=== PATIENT | male | born 1955 | race Caucasian/White ===

== ENCOUNTER 2023-09-15 15:31 | Inpatient (IN) ==
[2023-09-15] MEDS ORDERED: Magnesium Hydroxide LIQ 30 ML UDC PO PRN (18:28)
[2023-09-15] MEDS ORDERED: Albuterol HFA INHALER 8 gm MDI INH PRN (19:03)
[2023-09-16] MEDS: Mometasone 220 MCG MDI INH SCH (07:18)
[2023-09-16] MEDS: Enoxaparin 40 MG/0.4 ML SYR SUBCUT SCH (07:19)
[2023-09-16 07:52] LABS: ABS Basophils 0.1 10^3/uL (0.0-0.1); ABS Eosinophils 0.3 10^3/uL (0.0-0.5); ABS Lymphocytes 1.1 10^3/uL (1.0-4.8); ABS Monocytes 0.8 10^3/uL (0.0-1.1); ABS Neutrophils 8.1 10^3/uL (1.5-7.6); ABS Nucleated RBC 0.01 10^3/ul; Eosinophil % 2.4 %; Hematocrit 22.9 % (38-53); Lymphocyte % 10.9 %; Mean Corpuscular Hemoglobin 31.2 pg (27-33); Mean Corpuscular Hgb Conc 35.1 g/dL (31-36); Mean Corpuscular Volume 88.9 fL (80-97); Mean Platelet Volume 6.8 fL (7.5-11.2); Nucleated Red Blood Cells % 0.1 %/100WBC (0.0-0.8); Platelet Count 440 10^3/uL (150-450); Red Blood Count 2.57 10^6/uL (4.06-5.63); Red Cell Distribution Width 15.6 % (12-17); White Blood Count 10.3 10^3/uL (3.6-10.2)
[2023-09-16 08:32] LABS: Albumin 3.6 g/dL (3.2-5.2); Albumin/Globulin Ratio 1.7 (1-3); Calcium 8.4 mg/dL (8.6-10.3); Creatinine, Serum 1.19 mg/dL (0.67-1.17); Globulin 2.1 g/dL (2-4); Potassium 4.6 mmol/L (3.5-5.0); Total Bilirubin 0.8 mg/dL (0.2-1.0); Total Protein 5.7 g/dL (6.4-8.9); eGFR CKD-EPI 66.1 (>60)
[2023-09-17] MEDS: Bacitracin OINTMENT TUBE TOPICAL SCH (12:32)
[2023-09-18 06:44] LABS: ABS Basophils 0.1 10^3/uL (0.0-0.1); ABS Eosinophils 0.2 10^3/uL (0.0-0.5); ABS Lymphocytes 1.1 10^3/uL (1.0-4.8); ABS Monocytes 0.6 10^3/uL (0.0-1.1); ABS Neutrophils 6.1 10^3/uL (1.5-7.6); ABS Nucleated RBC 0.01 10^3/ul; Eosinophil % 2.2 %; Hematocrit 23.3 % (38-53); Hemoglobin 8.2 g/dL (13.2-16.3); Lymphocyte % 13.6 %; Mean Corpuscular Hemoglobin 30.8 pg (27-33); Mean Corpuscular Hgb Conc 35.1 g/dL (31-36); Mean Corpuscular Volume 87.8 fL (80-97); Mean Platelet Volume 6.8 fL (7.5-11.2); Nucleated Red Blood Cells % 0.1 %/100WBC (0.0-0.8); Platelet Count 460 10^3/uL (150-450); Red Blood Count 2.66 10^6/uL (4.06-5.63); Red Cell Distribution Width 15.6 % (12-17)
[2023-09-18 07:12] LABS: Albumin 3.5 g/dL (3.2-5.2); Albumin/Globulin Ratio 1.6 (1-3); Calcium 8.5 mg/dL (8.6-10.3); Creatinine, Serum 1.17 mg/dL (0.67-1.17); Globulin 2.2 g/dL (2-4); Potassium 4.2 mmol/L (3.5-5.0); Total Bilirubin 0.9 mg/dL (0.2-1.0); Total Protein 5.7 g/dL (6.4-8.9); eGFR CKD-EPI 67.5 (>60)
[2023-09-22] MEDS: Bacitracin OINTMENT TUBE TOPICAL SCH (08:35)
[2023-09-23 06:11] LABS: ABS Basophils 0.1 10^3/uL (0.0-0.1); ABS Eosinophils 0.2 10^3/uL (0.0-0.5); ABS Lymphocytes 0.9 10^3/uL (1.0-4.8); ABS Monocytes 0.5 10^3/uL (0.0-1.1); ABS Neutrophils 3.6 10^3/uL (1.5-7.6); ABS Nucleated RBC 0.01 10^3/ul; Eosinophil % 3.6 %; Hematocrit 26.8 % (38-53); Hemoglobin 9.1 g/dL (13.2-16.3); Lymphocyte % 17.1 %; Mean Corpuscular Hemoglobin 29.5 pg (27-33); Mean Corpuscular Hgb Conc 33.8 g/dL (31-36); Mean Corpuscular Volume 87.3 fL (80-97); Mean Platelet Volume 6.6 fL (7.5-11.2); Nucleated Red Blood Cells % 0.1 %/100WBC (0.0-0.8); Platelet Count 429 10^3/uL (150-450); Red Blood Count 3.07 10^6/uL (4.06-5.63); Red Cell Distribution Width 15.5 % (12-17); White Blood Count 5.3 10^3/uL (3.6-10.2)
[2023-09-23 06:30] LABS: Albumin 3.7 g/dL (3.2-5.2); Albumin/Globulin Ratio 1.8 (1-3); Calcium 8.7 mg/dL (8.6-10.3); Creatinine, Serum 1.19 mg/dL (0.67-1.17); Globulin 2.1 g/dL (2-4); Potassium 4.5 mmol/L (3.5-5.0); Total Bilirubin 0.6 mg/dL (0.2-1.0); Total Protein 5.8 g/dL (6.4-8.9); eGFR CKD-EPI 66.1 (>60)
[2023-09-27] MEDS: Ondansetron ODT 4 mg TAB 4 MG TAB SL PRN (08:37)
[2023-09-29] MEDS: Senna TAB 8.6 mg TAB PO PRN (20:29)
[2023-09-30 06:44] LABS: ABS Basophils 0.1 10^3/uL (0.0-0.1); ABS Eosinophils 0.3 10^3/uL (0.0-0.5); ABS Monocytes 0.5 10^3/uL (0.0-1.1); Eosinophil % 5.5 %; Hematocrit 29.2 % (38-53); Hemoglobin 9.8 g/dL (13.2-16.3); Lymphocyte % 20.1 %; Mean Corpuscular Hemoglobin 28.5 pg (27-33); Mean Corpuscular Hgb Conc 33.6 g/dL (31-36); Mean Corpuscular Volume 84.8 fL (80-97); Mean Platelet Volume 6.9 fL (7.5-11.2); Nucleated Red Blood Cells % 0.1 %/100WBC (0.0-0.8); Platelet Count 272 10^3/uL (150-450); Red Blood Count 3.45 10^6/uL (4.06-5.63); Red Cell Distribution Width 15.4 % (12-17); White Blood Count 4.8 10^3/uL (3.6-10.2)
[2023-09-30 07:03] LABS: Albumin 3.8 g/dL (3.2-5.2); Creatinine, Serum 1.09 mg/dL (0.67-1.17); Globulin 1.9 g/dL (2-4); Total Bilirubin 0.5 mg/dL (0.2-1.0); Total Protein 5.7 g/dL (6.4-8.9); eGFR CKD-EPI 73.5 (>60)
[2023-10-01 06:13] VITALS: BP 127/73
== END 2023-10-01 16:10 | disposition home or self-care (01) | DRG 563 ==
LOC: PMRU 18:02
PROVIDERS: ADMIT Physical Medicine & Rehabilitation; ATTEND Physical Medicine & Rehabilitation

== ENCOUNTER 2024-01-11 09:52 | Inpatient (IN) ==
[2024-01-11] MEDS ORDERED: Magnesium Hydroxide LIQ 30 ML UDC PO PRN (11:58)
[2024-01-11] MEDS ORDERED: Senna TAB 8.6 mg TAB PO PRN (11:58)
[2024-01-11] MEDS: DAPTOMYCIN IVPB SCH (14:40)
[2024-01-11] MEDS: NS 0.9% IVPB SCH (14:40)
[2024-01-11] MEDS: oxyCODONE SR 10 mg TAB PO SCH (21:16)
[2024-01-11] MEDS: Enoxaparin 30 MG/0.3 ML SYR SUBCUT SCH (21:16)
[2024-01-12 05:25] LABS: ABS Basophils 0.1 10^3/uL (0.0-0.1); ABS Eosinophils 0.2 10^3/uL (0.0-0.5); ABS Lymphocytes 1.4 10^3/uL (1.0-4.8); ABS Monocytes 0.7 10^3/uL (0.0-1.1); ABS Neutrophils 4.2 10^3/uL (1.5-7.6); Eosinophil % 3.2 %; Hematocrit 21.8 % (38-53); Hemoglobin 7.4 g/dL (13.2-16.3); Lymphocyte % 21.2 %; Mean Corpuscular Hemoglobin 26.9 pg (27-33); Mean Corpuscular Hgb Conc 33.7 g/dL (31-36); Mean Corpuscular Volume 79.9 fL (80-97); Mean Platelet Volume 6.3 fL (7.5-11.2); Platelet Count 542 10^3/uL (150-450); Red Blood Count 2.74 10^6/uL (4.06-5.63); Red Cell Distribution Width 16.7 % (12-17); White Blood Count 6.5 10^3/uL (3.6-10.2)
[2024-01-12 06:11] LABS: Albumin 2.4 g/dL (3.2-5.2); Albumin/Globulin Ratio 1.2 (1-3); C Reactive Protein 14.05 mg/L (<8.01); Calcium 6.7 mg/dL (8.6-10.3); Creatinine, Serum 1.18 mg/dL (0.67-1.17); Total Bilirubin 0.3 mg/dL (0.2-1.0); Total Protein 4.4 g/dL (6.4-8.9); eGFR CKD-EPI 66.8 (>60)
[2024-01-12 06:37] LABS: Erythrocyte Sed Rate 89 mm/Hr (0-19)
[2024-01-14 09:10] LABS: ABS Basophils 0.1 10^3/uL (0.0-0.1); ABS Eosinophils 0.5 10^3/uL (0.0-0.5); ABS Lymphocytes 1.1 10^3/uL (1.0-4.8); ABS Monocytes 0.7 10^3/uL (0.0-1.1); ABS Neutrophils 5.7 10^3/uL (1.5-7.6); Eosinophil % 5.9 %; Hematocrit 24.8 % (38-53); Hemoglobin 8.4 g/dL (13.2-16.3); Lymphocyte % 13.3 %; Mean Corpuscular Hemoglobin 27.1 pg (27-33); Mean Corpuscular Hgb Conc 33.7 g/dL (31-36); Mean Corpuscular Volume 80.5 fL (80-97); Mean Platelet Volume 6.4 fL (7.5-11.2); Platelet Count 507 10^3/uL (150-450); Red Blood Count 3.08 10^6/uL (4.06-5.63); Red Cell Distribution Width 17.2 % (12-17); White Blood Count 7.9 10^3/uL (3.6-10.2)
[2024-01-15 11:44] LABS: ABS Basophils 0.1 10^3/uL (0.0-0.1); ABS Eosinophils 0.4 10^3/uL (0.0-0.5); ABS Monocytes 1.2 10^3/uL (0.0-1.1); ABS Neutrophils 7.8 10^3/uL (1.5-7.6); Eosinophil % 3.6 %; Hematocrit 25.4 % (38-53); Hemoglobin 8.4 g/dL (13.2-16.3); Lymphocyte % 9.1 %; Mean Corpuscular Hemoglobin 26.6 pg (27-33); Mean Corpuscular Hgb Conc 33.3 g/dL (31-36); Mean Platelet Volume 6.6 fL (7.5-11.2); Platelet Count 459 10^3/uL (150-450); Red Blood Count 3.17 10^6/uL (4.06-5.63); White Blood Count 10.5 10^3/uL (3.6-10.2)
[2024-01-15 14:40] LABS: C Reactive Protein 132.27 mg/L (<8.01)
[2024-01-15 14:53] LABS: Budding Yeast Present /HPF (Absent); Urine Amorphous Crystals Present /HPF (Absent); Urine Appearance Turbid; Urine Bacteria 1+ /HPF (Absent); Urine Bilirubin Negative (Negative); Urine Blood 3+ (Negative); Urine Glucose Negative (Negative); Urine Ketones Negative (Negative); Urine Nitrite Negative (Negative); Urine Protein 3+ (>=300 mg/dL) (Negative); Urine Red Blood Cell 3+(>10/hpf) /HPF (0-Trace); Urine Specific Gravity 1.021 (1.002-1.030); Urine Squamous Epithelial Cell Present /HPF (Absent); Urine Urobilinogen Negative (Negative); Urine White Blood Cell 3+(>20/hpf) /HPF (0-Trace)
[2024-01-15 15:01] LABS: Urine Color Light-Red
[2024-01-15] MEDS: cefTRIAXone 1 gm/50 mL D5W 1 GM/50 ML BAG IV SCH (16:44)
[2024-01-15] MEDS: NS 0.9% 1000 ml BAG 1,000 ML IV SCH (17:27)
[2024-01-16 06:53] LABS: Albumin/Globulin Ratio 1.1 (1-3); Calcium 7.8 mg/dL (8.6-10.3); Creatinine, Serum 1.81 mg/dL (0.67-1.17); Globulin 2.7 g/dL (2-4); Potassium 4.1 mmol/L (3.5-5.0); Total Bilirubin 0.5 mg/dL (0.2-1.0); Total Protein 5.7 g/dL (6.4-8.9)
[2024-01-16 08:46] LABS: ABS Basophils 0.1 10^3/uL (0.0-0.1); ABS Eosinophils 0.5 10^3/uL (0.0-0.5); ABS Lymphocytes 0.8 10^3/uL (1.0-4.8); ABS Monocytes 1.2 10^3/uL (0.0-1.1); ABS Neutrophils 8.4 10^3/uL (1.5-7.6); Hematocrit 23.6 % (38-53); Lymphocyte % 7.4 %; Mean Corpuscular Hemoglobin 27.1 pg (27-33); Mean Corpuscular Hgb Conc 33.9 g/dL (31-36); Mean Platelet Volume 6.5 fL (7.5-11.2); Platelet Count 398 10^3/uL (150-450); Red Blood Count 2.95 10^6/uL (4.06-5.63); Red Cell Distribution Width 16.9 % (12-17); White Blood Count 11.1 10^3/uL (3.6-10.2)
[2024-01-16] MEDS: Azithromycin 500 mg/250 ml NS 500 MG/250 ML BAG IVPB SCH (09:23)
[2024-01-16] MEDS: Lactated Ringers 1000 ml BAG 1,000 ML IV ONE (09:38)
[2024-01-16] MEDS: Lactated Ringers 1000 ml BAG 1,000 ML IV SCH (10:42)
[2024-01-17 06:19] LABS: Calcium 7.6 mg/dL (8.6-10.3); Creatinine, Serum 2.41 mg/dL (0.67-1.17); Potassium 4.2 mmol/L (3.5-5.0); eGFR CKD-EPI 28.4 (>60)
[2024-01-17] MEDS: Albuterol HFA INHALER 8 gm MDI INH PRN (11:25)
[2024-01-17 13:10] LABS: ABS Basophils 0.1 10^3/uL (0.0-0.1); ABS Eosinophils 0.3 10^3/uL (0.0-0.5); ABS Lymphocytes 0.7 10^3/uL (1.0-4.8); ABS Monocytes 1.2 10^3/uL (0.0-1.1); ABS Neutrophils 10.2 10^3/uL (1.5-7.6); ABS Nucleated RBC 0.01 10^3/ul; Eosinophil % 2.2 %; Hematocrit 22.5 % (38-53); Hemoglobin 7.5 g/dL (13.2-16.3); Lymphocyte % 5.9 %; Mean Corpuscular Hemoglobin 26.6 pg (27-33); Mean Corpuscular Hgb Conc 33.5 g/dL (31-36); Mean Corpuscular Volume 79.4 fL (80-97); Mean Platelet Volume 6.9 fL (7.5-11.2); Platelet Count 404 10^3/uL (150-450); Red Blood Count 2.83 10^6/uL (4.06-5.63); Red Cell Distribution Width 16.8 % (12-17); White Blood Count 12.5 10^3/uL (3.6-10.2)
[2024-01-17] MEDS: Lactated Ringers 1000 ml BAG 1,000 ML IV SCH ×2 (14:02→17:57)
[2024-01-17 14:39] LABS: C Reactive Protein 236.9 mg/L (<8.01)
[2024-01-17] MEDS ORDERED: Zosyn per Pharmacy NOTE FOLLOW UP SCH (17:00)
[2024-01-17] MEDS: Piperacillin/Tazobac 3.375 BAG 3.375 GM/100 ML BAG IV ONE (17:56)
[2024-01-17] MEDS: ZOSYN 3.375 GM Q8H per EXTENDED INFUSION IV SCH (22:07)
[2024-01-18 07:13] LABS: ABS Basophils 0.1 10^3/uL (0.0-0.1); ABS Eosinophils 0.4 10^3/uL (0.0-0.5); ABS Lymphocytes 0.9 10^3/uL (1.0-4.8); ABS Monocytes 1.3 10^3/uL (0.0-1.1); ABS Neutrophils 12.1 10^3/uL (1.5-7.6); Hematocrit 22.5 % (38-53); Hemoglobin 7.6 g/dL (13.2-16.3); Mean Corpuscular Hemoglobin 26.9 pg (27-33); Mean Corpuscular Hgb Conc 33.8 g/dL (31-36); Mean Corpuscular Volume 79.4 fL (80-97); Platelet Count 405 10^3/uL (150-450); Red Blood Count 2.83 10^6/uL (4.06-5.63); Red Cell Distribution Width 16.6 % (12-17); White Blood Count 14.7 10^3/uL (3.6-10.2)
[2024-01-18 07:27] LABS: Albumin 2.7 g/dL (3.2-5.2); C Reactive Protein 299.17 mg/L (<8.01); Calcium 7.6 mg/dL (8.6-10.3); Creatinine, Serum 3.74 mg/dL (0.67-1.17); Globulin 2.6 g/dL (2-4); Potassium 4.4 mmol/L (3.5-5.0); Total Bilirubin 0.5 mg/dL (0.2-1.0); Total Protein 5.3 g/dL (6.4-8.9); eGFR CKD-EPI 16.7 (>60)
[2024-01-18 08:24] VITALS: BP 137/72
[2024-01-18 09:04] LABS: Erythrocyte Sed Rate > 120 mm/Hr (0-19)
[2024-01-18] MEDS: Furosemide 100 mg/10 ml IV VIAL IV ONE (10:35)
[2024-01-18 10:38] LABS: High Sensitivity Troponin 1 Hr 40 pg/mL (<20)
[2024-01-18 10:58] LABS: Urine Appearance Extra Turbid; Urine Bacteria Absent /HPF (Absent); Urine Bilirubin Negative (Negative); Urine Blood 3+ (Negative); Urine Color Light-Orange; Urine Glucose Negative (Negative); Urine Ketones Negative (Negative); Urine Nitrite Negative (Negative); Urine Protein 2+ (>=100 mg/dL) (Negative); Urine Red Blood Cell 3+(>10/hpf) /HPF (0-Trace); Urine Specific Gravity 1.016 (1.002-1.030); Urine Urobilinogen Negative (Negative); Urine White Blood Cell Trace(0-5/hpf) /HPF (0-Trace); Urine pH 5.5 (5.0-8.0)
== END 2024-01-18 12:00 | disposition short-term general hospital (02) | DRG 539 ==
LOC: PMRU 09:52 → MED 01-18 11:34
PROVIDERS: ADMIT Physical Medicine & Rehabilitation; ATTEND Physical Medicine & Rehabilitation

== ENCOUNTER 2024-01-18 07:47 | Inpatient (IN) ==
[2024-01-18] MEDS ORDERED: Senna TAB 8.6 mg TAB PO PRN (10:25)
[2024-01-18] MEDS ORDERED: Magnesium Hydroxide LIQ 30 ML UDC PO PRN (10:25)
[2024-01-18] MEDS ORDERED: Albuterol HFA INHALER 8 gm MDI INH PRN (10:25)
[2024-01-18] MEDS ORDERED: Zosyn per Pharmacy NOTE FOLLOW UP SCH (11:00)
[2024-01-18] MEDS: Azithromycin 500 mg/250 ml NS 500 MG/250 ML BAG IVPB ONE (12:08)
[2024-01-18] MEDS: Enoxaparin 30 MG/0.3 ML SYR SUBCUT SCH (12:08)
[2024-01-18] MEDS ORDERED: Azithromycin 500 mg/250 ml NS 500 MG/250 ML BAG IVPB ONE (13:00)
[2024-01-18] MEDS: ZOSYN 3.375 GM Q8H per EXTENDED INFUSION IV SCH (14:34)
[2024-01-18 15:50] LABS: Rheumatoid Factor < 10 IU/mL (<15)
[2024-01-18] MEDS ORDERED: Vancomycin 1,000 MG in NS 0.9% 250 ml 250 ML IVPB SCH (16:06)
[2024-01-18] MEDS ORDERED: Vancomycin per Pharmacy 1 EA NOTE FOLLOW UP PRN (16:20)
[2024-01-18 16:39] LABS: Hepatitis B Surface Ab Not Immune (Immune); Hepatitis C Antibody Negative (Negative)
[2024-01-18] MEDS: NS 0.9% IVPB SCH (16:55)
[2024-01-18] MEDS: DAPTOMYCIN IVPB SCH (16:55)
[2024-01-18] MEDS: Vancomycin 1,750 MG in NS 0.9% 500 ml BAG 500 ML IVPB ONE (17:46)
[2024-01-18] MEDS ORDERED: Albuterol/Ipratropium NEB.SOL (2.5/0.5 MG) 3 ML NEB.SOLN INH PRN (17:58)
[2024-01-18 21:51] LABS: HIV 4th Generation Nonreactive (Nonreactive)
[2024-01-18 23:30] LABS: Hepatitis B Surface Antigen Nonreactive (Nonreactive)
[2024-01-19 05:35] LABS: ABS Basophils 0.1 10^3/uL (0.0-0.1); ABS Eosinophils 0.5 10^3/uL (0.0-0.5); ABS Lymphocytes 0.8 10^3/uL (1.0-4.8); ABS Monocytes 1.1 10^3/uL (0.0-1.1); ABS Neutrophils 13.9 10^3/uL (1.5-7.6); Eosinophil % 2.8 %; Lymphocyte % 4.6 %; Mean Corpuscular Hemoglobin 26.7 pg (27-33); Mean Corpuscular Hgb Conc 33.3 g/dL (31-36); Platelet Count 392 10^3/uL (150-450); Red Blood Count 2.62 10^6/uL (4.06-5.63); Red Cell Distribution Width 17.6 % (12-17); White Blood Count 16.4 10^3/uL (3.6-10.2)
[2024-01-19 05:56] LABS: Albumin 2.5 g/dL (3.2-5.2); C Reactive Protein 318.96 mg/L (<8.01); Calcium 7.3 mg/dL (8.6-10.3); Creatinine, Serum 5.23 mg/dL (0.67-1.17); Globulin 2.5 g/dL (2-4); Magnesium 1.8 mg/dL (1.9-2.7); Potassium 4.7 mmol/L (3.5-5.0); Total Bilirubin 0.5 mg/dL (0.2-1.0); Vancomycin Random 16.5 mcg/mL; eGFR CKD-EPI 11.2 (>60)
[2024-01-19] MEDS: Vancomycin Random Level NOTE FOLLOW UP ONE (08:28)
[2024-01-19] MEDS: Enoxaparin 30 MG/0.3 ML SYR SUBCUT SCH (08:37)
[2024-01-19] MEDS: Furosemide 100 mg/10 ml IV VIAL IV ONE (09:39)
[2024-01-19] MEDS: Magnesium Sulfate 2 gm BAG 2 GM/50 ML BAG IVPB ONE (11:18)
[2024-01-19 12:03] LABS: Hematocrit 22.7 % (38-53); Hemoglobin 7.4 g/dL (13.2-16.3)
[2024-01-19 13:07] LABS: Calcium 7.6 mg/dL (8.6-10.3); Creatinine, Serum 6.12 mg/dL (0.67-1.17); Potassium 4.4 mmol/L (3.5-5.0); eGFR CKD-EPI 9.3 (>60)
[2024-01-19] MEDS ORDERED: NS 0.9% 1000 ml BAG 100 ML IV PRN (15:04)
[2024-01-19] MEDS ORDERED: NS 0.9% 1000 ml BAG 200 ML IV PRN (15:04)
[2024-01-19] MEDS ORDERED: Albumin Human 25% 25 GM/100 ML BTL IV PRN (15:04)
[2024-01-19] MEDS: Heparin 1,000 UNIT/ML 10 ml (10,000 UNITS) CATHLAB/DIALYSIS DIALYSIS PRN (15:48)
[2024-01-19] MEDS ORDERED: Vancomycin 1,250 MG in NS 0.9% 250 ml 250 ML IVPB ONE (18:00)
[2024-01-19] MEDS: Vancomycin 1000 MG in NS 0.9% 250 ML IVPB ONE (18:26)
[2024-01-19] MEDS: ZOSYN 3.375 GM Q12H per EXTENDED INFUSION IV SCH (18:27)
[2024-01-19] MEDS ORDERED: Heparin 5000 UNITS/ML 1 mL VIAL SUBCUT SCH (21:00)
[2024-01-19] MEDS: Furosemide 100 mg/10 ml IV VIAL IV SCH (21:04)
[2024-01-20 06:01] LABS: ABS Basophils 0.1 10^3/uL (0.0-0.1); ABS Eosinophils 0.4 10^3/uL (0.0-0.5); ABS Monocytes 1.1 10^3/uL (0.0-1.1); ABS Neutrophils 12.7 10^3/uL (1.5-7.6); ABS Nucleated RBC 0.01 10^3/ul; Eosinophil % 2.6 %; Hematocrit 20.8 % (38-53); Hemoglobin 6.8 g/dL (13.2-16.3); Lymphocyte % 6.6 %; Mean Corpuscular Hemoglobin 25.9 pg (27-33); Mean Corpuscular Hgb Conc 32.8 g/dL (31-36); Mean Corpuscular Volume 78.9 fL (80-97); Mean Platelet Volume 7.2 fL (7.5-11.2); Platelet Count 428 10^3/uL (150-450); Red Blood Count 2.63 10^6/uL (4.06-5.63); Red Cell Distribution Width 17.3 % (12-17); White Blood Count 15.2 10^3/uL (3.6-10.2)
[2024-01-20 07:15] LABS: Anion Gap 11 mmol/L (2-16); Blood Urea Nitrogen 46 mg/dL (6-24); CO2 Carbon Dioxide 23 mmol/L (22-32); Calcium 7.6 mg/dL (8.6-10.3); Chloride 100 mmol/L (101-111); Glucose 108 mg/dL (70-100); Potassium 4.1 mmol/L (3.5-5.0); Sodium 134 mmol/L (135-145); Vancomycin Random 21.4 mcg/mL; eGFR CKD-EPI 9.7 (>60)
[2024-01-20 08:07] LABS: C Reactive Protein 296.37 mg/L (<8.01)
[2024-01-20 15:09] LABS: Complement C3 137 mg/dL (75 - 175)
[2024-01-20 15:29] LABS: % Iron Saturation 11 % (15-55); .Transferrin 128 mg/dL (203-362); Iron < 20 ug/dL (50-212); Total Iron Binding Capacity 179 mcg/dL (250-450); Unsaturated Iron Binding 159 ug/dL
[2024-01-20 15:51] LABS: Ferritin 293.9 ng/mL (24-336)
[2024-01-20 15:55] LABS: Vitamin B12 175 pg/mL (180-914)
[2024-01-20 15:56] LABS: Folate 9.06 ng/mL (5.90-24.80)
[2024-01-20 19:23] LABS: Hematocrit 23.8 % (38-53)
[2024-01-21 06:16] LABS: ABS Basophils 0.1 10^3/uL (0.0-0.1); ABS Eosinophils 0.8 10^3/uL (0.0-0.5); ABS Lymphocytes 0.8 10^3/uL (1.0-4.8); ABS Monocytes 0.9 10^3/uL (0.0-1.1); ABS Neutrophils 9.8 10^3/uL (1.5-7.6); Eosinophil % 6.3 %; Hematocrit 22.3 % (38-53); Hemoglobin 7.7 g/dL (13.2-16.3); Lymphocyte % 6.4 %; Mean Corpuscular Hemoglobin 27.2 pg (27-33); Mean Corpuscular Hgb Conc 34.7 g/dL (31-36); Mean Corpuscular Volume 78.4 fL (80-97); Mean Platelet Volume 7.1 fL (7.5-11.2); Platelet Count 419 10^3/uL (150-450); Red Blood Count 2.84 10^6/uL (4.06-5.63); Red Cell Distribution Width 17.1 % (12-17); White Blood Count 12.4 10^3/uL (3.6-10.2)
[2024-01-21 06:30] LABS: INR 1.21 (0.85-1.14)
[2024-01-21 06:47] LABS: Calcium 7.5 mg/dL (8.6-10.3); Creatinine, Serum 5.44 mg/dL (0.67-1.17); Potassium 3.8 mmol/L (3.5-5.0); Vancomycin Random 15.2 mcg/mL; eGFR CKD-EPI 10.7 (>60)
[2024-01-21] MEDS: Desmopressin Acetate 30 MCG in NS 0.9% 50 ML 50 ML IVPB ONE (14:31)
[2024-01-21] MEDS: Vancomycin Random Level NOTE FOLLOW UP ONE (16:44)
[2024-01-21] MEDS: Vancomycin 1000 MG in NS 0.9% 250 ML IVPB ONE (17:03)
[2024-01-21 18:16] LABS: C-ANCA Negative (Negative); P-ANCA Negative (Negative)
[2024-01-22 06:30] LABS: ABS Basophils 0.1 10^3/uL (0.0-0.1); ABS Eosinophils 0.6 10^3/uL (0.0-0.5); ABS Lymphocytes 0.9 10^3/uL (1.0-4.8); ABS Monocytes 0.6 10^3/uL (0.0-1.1); ABS Neutrophils 7.1 10^3/uL (1.5-7.6); Eosinophil % 6.1 %; Hematocrit 20.3 % (38-53); Hemoglobin 6.9 g/dL (13.2-16.3); Lymphocyte % 9.4 %; Mean Corpuscular Hemoglobin 26.9 pg (27-33); Mean Corpuscular Volume 79.1 fL (80-97); Mean Platelet Volume 7.1 fL (7.5-11.2); Platelet Count 375 10^3/uL (150-450); Red Blood Count 2.57 10^6/uL (4.06-5.63); Red Cell Distribution Width 16.8 % (12-17); White Blood Count 9.2 10^3/uL (3.6-10.2)
[2024-01-22 07:03] LABS: Calcium 7.5 mg/dL (8.6-10.3); Creatinine, Serum 5.5 mg/dL (0.67-1.17); eGFR CKD-EPI 10.5 (>60)
[2024-01-22] MEDS: ZOSYN 3.375 GM Q12H per EXTENDED INFUSION IV SCH (13:22)
[2024-01-22 13:41] LABS: PLA2R, Immunofluorescence, S Negative (Negative)
[2024-01-22] MEDS: Vancomycin Random Level NOTE FOLLOW UP ONE (14:21)
[2024-01-22] MEDS: Cyanocobalamin INJ 1,000 MCG/ML VIAL 1 ML VIAL IM ONE (15:48)
[2024-01-22] MEDS: Vancomycin 1000 MG in NS 0.9% 250 ML IVPB ONE (17:50)
[2024-01-23 06:44] LABS: Hematocrit 23.8 % (38-53); Hemoglobin 8.4 g/dL (13.2-16.3)
[2024-01-23 07:15] LABS: Calcium 7.7 mg/dL (8.6-10.3); Creatinine, Serum 5.21 mg/dL (0.67-1.17); Potassium 3.7 mmol/L (3.5-5.0); eGFR CKD-EPI 11.2 (>60)
[2024-01-23 18:19] LABS: Hematocrit 25.4 % (38-53); Hemoglobin 8.5 g/dL (13.2-16.3)
[2024-01-24 08:57] LABS: Hematocrit 24.3 % (38-53); Hemoglobin 8.5 g/dL (13.2-16.3)
[2024-01-24 14:50] LABS: Calcium 7.9 mg/dL (8.6-10.3); Creatinine, Serum 7.12 mg/dL (0.67-1.17); Potassium 3.5 mmol/L (3.5-5.0); eGFR CKD-EPI 7.7 (>60)
[2024-01-24] MEDS: Enoxaparin 30 MG/0.3 ML SYR SUBCUT SCH (21:14)
[2024-01-25 08:53] LABS: Hematocrit 25.7 % (38-53); Hemoglobin 8.7 g/dL (13.2-16.3); Mean Corpuscular Hemoglobin 27.1 pg (27-33); Mean Corpuscular Hgb Conc 33.9 g/dL (31-36); Mean Corpuscular Volume 80.1 fL (80-97); Mean Platelet Volume 6.7 fL (7.5-11.2); Platelet Count 382 10^3/uL (150-450); Red Blood Count 3.21 10^6/uL (4.06-5.63); Red Cell Distribution Width 16.7 % (12-17); White Blood Count 8.4 10^3/uL (3.6-10.2)
[2024-01-25] MEDS: Vancomycin Random Level NOTE FOLLOW UP ONE (08:58)
[2024-01-25 09:35] LABS: Calcium 7.6 mg/dL (8.6-10.3); Creatinine, Serum 7.44 mg/dL (0.67-1.17); Potassium 3.6 mmol/L (3.5-5.0); eGFR CKD-EPI 7.3 (>60)
[2024-01-25] MEDS: Vancomycin 1000 MG in NS 0.9% 250 ML IVPB ONE (17:17)
[2024-01-26 06:14] LABS: ABS Basophils 0.1 10^3/uL (0.0-0.1); ABS Eosinophils 0.6 10^3/uL (0.0-0.5); ABS Monocytes 0.7 10^3/uL (0.0-1.1); ABS Neutrophils 9.2 10^3/uL (1.5-7.6); ABS Nucleated RBC 0.01 10^3/ul; Eosinophil % 4.9 %; Hematocrit 25.1 % (38-53); Hemoglobin 8.3 g/dL (13.2-16.3); Lymphocyte % 8.5 %; Mean Corpuscular Hemoglobin 26.5 pg (27-33); Mean Corpuscular Hgb Conc 33.2 g/dL (31-36); Mean Corpuscular Volume 79.9 fL (80-97); Mean Platelet Volume 6.7 fL (7.5-11.2); Platelet Count 424 10^3/uL (150-450); Red Blood Count 3.14 10^6/uL (4.06-5.63); Red Cell Distribution Width 16.9 % (12-17); White Blood Count 11.6 10^3/uL (3.6-10.2)
[2024-01-26 06:43] LABS: Calcium 7.9 mg/dL (8.6-10.3); Creatinine, Serum 6.23 mg/dL (0.67-1.17); Magnesium 1.8 mg/dL (1.9-2.7); Potassium 3.7 mmol/L (3.5-5.0); eGFR CKD-EPI 9.1 (>60)
[2024-01-26 18:04] LABS: Case Number KR-24-6453
[2024-01-27 06:21] LABS: ABS Basophils 0.1 10^3/uL (0.0-0.1); ABS Eosinophils 0.6 10^3/uL (0.0-0.5); ABS Lymphocytes 1.1 10^3/uL (1.0-4.8); ABS Monocytes 0.7 10^3/uL (0.0-1.1); ABS Neutrophils 7.4 10^3/uL (1.5-7.6); Eosinophil % 6.5 %; Hematocrit 23.5 % (38-53); Hemoglobin 8.2 g/dL (13.2-16.3); Lymphocyte % 10.7 %; Mean Corpuscular Hemoglobin 27.9 pg (27-33); Mean Corpuscular Volume 79.7 fL (80-97); Mean Platelet Volume 6.7 fL (7.5-11.2); Platelet Count 394 10^3/uL (150-450); Red Blood Count 2.95 10^6/uL (4.06-5.63); Red Cell Distribution Width 16.8 % (12-17)
[2024-01-27 06:47] LABS: Calcium 7.9 mg/dL (8.6-10.3); Creatinine, Serum 7.33 mg/dL (0.67-1.17); Potassium 3.8 mmol/L (3.5-5.0); Vancomycin Random 22.1 mcg/mL; eGFR CKD-EPI 7.5 (>60)
[2024-01-27] MEDS ORDERED: Clindamycin 600 MG/NS BAG(*) 600 MG/50 ML BAG ONE (11:52)
[2024-01-27] MEDS ORDERED: Midazolam 5 mg/5 ml VIAL 1 mg/ml 5 ml VIAL (5 mg) ONE (12:08)
[2024-01-27] MEDS ORDERED: Lidocaine 1% VIAL 10 MG/ML 30 ML VIAL ONE (12:08)
[2024-01-27] MEDS ORDERED: fentaNYL 100 mcg/2 ml 50 MCG/ML VIAL ONE (12:08)
[2024-01-27] MEDS ORDERED: Heparin 2 UNITS/ML IVPREMIX 1,000 UNIT/500 ML BAG IV ONE (12:08)
[2024-01-27] MEDS: Clindamycin 600 MG/D5W BAG 600 MG/50 ML BAG IV ONE (12:15)
[2024-01-27 15:38] LABS: C Reactive Protein 26.71 mg/L (<8.01)
[2024-01-27] MEDS: Vancomycin Random Level NOTE FOLLOW UP ONE (18:12)
[2024-01-27] MEDS: Vancomycin 1000 MG in NS 0.9% 250 ML IVPB ONE (18:13)
[2024-01-28 09:36] VITALS: BP 144/87
[2024-01-29] MEDS ORDERED: Vancomycin Random Level NOTE FOLLOW UP ONE (06:00)
== END 2024-01-28 11:30 | disposition home or self-care (01) | DRG 871 ==
LOC: MEDTELE → MED 12:02 → SUATTDRO 01-19 13:19
PROVIDERS: ADMIT Internal Medicine; ATTEND Student in an Organized Health Care Education/Training Program